=== PATIENT | female | born 1985 | race Caucasian/White ===

== ENCOUNTER → 2018-01-10 15:34 | Outpatient (CLI) | payer OTHER ==
[2014-03-01 20:30] VITALS: BMI 36.3
[~2018-01-10 15:34] MED LIST: BACTRIM DS TABL1 TAB PO; PERCOCET 10/3251 TA1 PO
== END | disposition home or self-care (01) ==
LOC: D.MRI 15:34
DX: R51 Headache (principal); G93.2 Benign intracranial hypertension; Q07.00 Arnold-Chiari syndrome without spina bifida or hydrocephalus